=== PATIENT | female | born 1945 | race Two or more races ===

== ENCOUNTER 2023-01-13 16:14 | Inpatient (IN) | payer OTHER, MEDICAID ==
[~2023-01-13] VITALS: Ht 160 cm; Wt 46.8 kg
[2023-01-13] MEDS ORDERED: SODIUM CHLORIDE 0.9% 500 ML IVB ONE (16:45)
[2023-01-13 17:31] LABS: Albumin 2.9 g/dL (3.4-5.0); Calcium 9.4 mg/dL (8.5-10.1); Magnesium 2.7 mg/dL (1.6-2.6); Potassium 3.8 mmol/L (3.5-5.1)
[2023-01-13 17:35] LABS: BUN/Creatinine Ratio 36.4 (10.0-20.0); Bilirubin, Total 0.8 mg/dL (0.2-1.0); Total Protein 8.5 g/dL (6.4-8.2)
[2023-01-13 17:46] LABS: Basophils # (auto) 0 10 ^3/uL (0-0.2); Basophils % (auto) 0.1 % (0.0-2.0); Eosinophils # (auto) 0 10 ^3/uL (0-0.8); Hematocrit 42.6 % (36.0-46.0); Lymphocytes # (auto) 0.7 10 ^3/uL (0.4-5.4); Lymphocytes % (auto) 5.3 % (10.0-50.0); Mean Corpuscular Hemoglobin 27.4 pg (28.0-32.0); Mean Corpuscular Hgb Conc. 32.9 g/dL (32.0-36.0); Mean Corpuscular Volume 83.3 fL (80.0-100.0); Monocytes # (auto) 0.7 10 ^3/uL (0-1.3); Monocytes % (auto) 5.3 % (0.0-12.0); Neutrophils # (auto) 12.1 10 ^3/uL (1.6-8.6); Neutrophils % (auto) 89.3 % (37.0-80.0); Nucleated Red Blood Cells % 0.1 %; Red Blood Cells 5.12 10^6/uL (4.0-5.20); Red Cell Distribution Width 14.1 % (11.8-14.3); White Blood Cell 13.6 10^3/uL (4.4-10.8)
[2023-01-13 18:00] LABS: INR 1.14 (0.9-1.15); Partial Thromboplastin Time 30.5 SEC (24.5-34.5); Prothrombin Time 11.9 sec (9.3-11.8)
[2023-01-13] MEDS ORDERED: levoFLOXacin 500MG 100 ML IV ONE (21:00)
[2023-01-13 21:30] VITALS: RESP 14; O2SAT 98
[2023-01-13 22:28] LABS: Urine Bacteria NONE SEEN /hpf (None Seen); Urine Blood 1+ /uL (Negative); Urine Clarity HAZY (Clear); Urine Color Yellow (Yellow); Urine Mucus FEW (None Seen); Urine Protein, UAD TRACE (Negative); Urine Specific Gravity 1.016 (1.001-1.035); Urine Urobilinogen Normal (Negative); Urine WBC 29 /hpf (0 - 5)
[2023-01-14] MEDS ORDERED: MORPHINE SULFATE INJ 2 MG/ml SYRG IV PRN (03:30)
[2023-01-14] MEDS ORDERED: ONDANSETRON HCL 4 MG/2 ML VIAL IV PRN (03:30)
[2023-01-14] MEDS ORDERED: DOCUSATE SOD 100 MG CAP PO PRN (03:30)
[2023-01-14] MEDS ORDERED: VANCOMYCIN PER PHARMACY 0 MG IV SCH ×2 (03:30→14:45)
[2023-01-14] MEDS ORDERED: ACETAMINOPHEN 325 MG TAB PO PRN (03:30)
[2023-01-14] MEDS ORDERED: DEXTROSE (50%) 50ML SYRG IV PRN (03:30)
[2023-01-14] MEDS ORDERED: NITROGLYCERIN 0.4 MG SL TAB SL PRN (03:30)
[2023-01-14] MEDS ORDERED: VANCOMYCIN 1GM/250ML 250 ML IV ONE (04:45)
[2023-01-14] MEDS: SODIUM CHLORIDE 0.9% 1,000 ML IV SCH ×2 (05:21→17:21)
[2023-01-14 05:56] LABS: Basophils # (auto) 0 10 ^3/uL (0-0.2); Eosinophils # (auto) 0 10 ^3/uL (0-0.8); Hematocrit 42.4 % (36.0-46.0); Hemoglobin 14.1 g/dL (12.2-16.2); Lymphocytes # (auto) 0.8 10 ^3/uL (0.4-5.4); Mean Corpuscular Hemoglobin 27.6 pg (28.0-32.0); Mean Corpuscular Hgb Conc. 33.1 g/dL (32.0-36.0); Mean Corpuscular Volume 83.2 fL (80.0-100.0); Monocytes # (auto) 1.1 10 ^3/uL (0-1.3); Monocytes % (auto) 6.5 % (0.0-12.0); Neutrophils # (auto) 14.4 10 ^3/uL (1.6-8.6); Neutrophils % (auto) 88.5 % (37.0-80.0); Red Cell Distribution Width 14.1 % (11.8-14.3); White Blood Cell 16.3 10^3/uL (4.4-10.8)
[2023-01-14] MEDS: ACCU-CHEK COMFORT CURVE STRIP VI SCH ×3 (06:02→18:17)
[2023-01-14] MEDS: InsuLIN REG 1unit/0.01ml Soln (100units/ml) SC SCH ×3 (06:06→18:00)
[2023-01-14 06:20] LABS: BUN/Creatinine Ratio 38.9 (10.0-20.0); Calcium 9.2 mg/dL (8.5-10.1); Potassium 3.1 mmol/L (3.5-5.1)
[2023-01-14] MEDS: CLINDAMYCIN 600MG IV 50 ML IV SCH ×2 (06:30→14:00)
[2023-01-14] MEDS ORDERED: POTASSIUM CHL 20MEQ/100ML 100 ML IV ONE (07:00)
[2023-01-14 08:30] VITALS: PULSE 86; RESP 16; O2SAT 96
[2023-01-14 19:30] VITALS: PULSE 88; RESP 20; O2SAT 96
[2023-01-14] MEDS ORDERED: levoFLOXacin 250MG 50 ML IV SCH (21:00)
[2023-01-14 23:47] VITALS: BP 176/77; PULSE 85; RESP 16; TEMP 98.9; O2SAT 98
[2023-01-14] MEDS ORDERED: ATEN50TA PO (23:55)
[2023-01-14] MEDS ORDERED: METF-371 PO (23:55)
[2023-01-15] MEDS: ACCU-CHEK COMFORT CURVE STRIP VI SCH ×4 (00:22→17:31)
[2023-01-15] MEDS ORDERED: CLON0.1T PO (00:36)
[2023-01-15] MEDS ORDERED: AMLO1TAB23 PO (00:36)
[2023-01-15] MEDS: hydrALAZINE HCL 20 MG/ML VL IV PRN ×2 (02:11→22:43)
[2023-01-15 05:00] VITALS: BP 153/71; PULSE 93; RESP 18; TEMP 97.3; O2SAT 100
[2023-01-15] MEDS: InsuLIN REG 1unit/0.01ml Soln (100units/ml) SC SCH ×4 (05:25→17:31)
[2023-01-15] MEDS: SODIUM CHLORIDE 0.9% 1,000 ML IV SCH ×3 (06:10→21:40)
[2023-01-15 06:13] LABS: Basophils # (auto) 0 10 ^3/uL (0-0.2); Basophils % (auto) 0.1 % (0.0-2.0); Eosinophils # (auto) 0 10 ^3/uL (0-0.8); Hematocrit 40.3 % (36.0-46.0); Hemoglobin 13.4 g/dL (12.2-16.2); Lymphocytes # (auto) 0.8 10 ^3/uL (0.4-5.4); Lymphocytes % (auto) 5.4 % (10.0-50.0); Mean Corpuscular Hemoglobin 27.8 pg (28.0-32.0); Mean Corpuscular Hgb Conc. 33.2 g/dL (32.0-36.0); Mean Corpuscular Volume 83.6 fL (80.0-100.0); Monocytes % (auto) 6.1 % (0.0-12.0); Neutrophils # (auto) 13.8 10 ^3/uL (1.6-8.6); Neutrophils % (auto) 88.4 % (37.0-80.0); Nucleated Red Blood Cells % 0.2 %; Red Blood Cells 4.82 10^6/uL (4.0-5.20); Red Cell Distribution Width 14.2 % (11.8-14.3); White Blood Cell 15.6 10^3/uL (4.4-10.8)
[2023-01-15 06:29] LABS: BUN/Creatinine Ratio 38.1 (10.0-20.0); Calcium 9.1 mg/dL (8.5-10.1)
[2023-01-15 06:44] LABS: Potassium 2.9 mmol/L (3.5-5.1)
[2023-01-15] MEDS: POTASSIUM CHL 20MEQ/100ML 100 ML IV SCH ×3 (07:42→12:46)
[2023-01-15 08:00] VITALS: PULSE 89
[2023-01-15 09:00] VITALS: BP_SYST 123; BP_SYST 167; BP_DIAS 72; BP_DIAS 80; PULSE 100; PULSE 92; RESP 18; RESP 20; TEMP 97.3; TEMP 97.5; O2SAT 93; O2SAT 99
[2023-01-15] MEDS ORDERED: IOHEXOL 300 MG/ML 100ML BOTTLE IJ ONE (12:01)
[2023-01-15] MEDS ORDERED: cefTRIAXone 1GM/50ML D5W 50 ML IV ONE (14:30)
[2023-01-15 16:00] VITALS: BP 162/91; PULSE 92; RESP 92; TEMP 98; O2SAT 98
[2023-01-15] MEDS: VANCOMYCIN 1GM/250ML 250 ML IV SCH (16:43)
[2023-01-15 20:10] VITALS: PULSE 91; PULSE 92; RESP 18; O2SAT 90
[2023-01-15 22:00] VITALS: BP 168/90; PULSE 91; RESP 18; TEMP 98.3; O2SAT 90
[2023-01-16] VITALS (8 sets, daily range): BP systolic 151–197; BP diastolic 66–99; PULSE 91–110; RESP 18–20; TEMP 96.9–98.4; O2SAT 90–100
[2023-01-16] MEDS: ACCU-CHEK COMFORT CURVE STRIP VI SCH ×5 (00:28→23:50)
[2023-01-16] MEDS: METOPROLOL TARTRATE 1MG/1ML-5ML VIAL IV PRN (03:14)
[2023-01-16] MEDS: SODIUM CHLORIDE 0.9% 1,000 ML IV SCH ×4 (04:20→23:52)
[2023-01-16] MEDS: hydrALAZINE HCL 20 MG/ML VL IV PRN ×2 (04:55→19:07)
[2023-01-16] MEDS: InsuLIN REG 1unit/0.01ml Soln (100units/ml) SC SCH ×5 (05:31→23:54)
[2023-01-16 06:10] LABS: Basophils # (auto) 0 10 ^3/uL (0-0.2); Basophils % (auto) 0.1 % (0.0-2.0); Eosinophils # (auto) 0 10 ^3/uL (0-0.8); Hematocrit 41.9 % (36.0-46.0); Hemoglobin 13.5 g/dL (12.2-16.2); Lymphocytes # (auto) 0.8 10 ^3/uL (0.4-5.4); Lymphocytes % (auto) 5.1 % (10.0-50.0); Mean Corpuscular Hemoglobin 27.4 pg (28.0-32.0); Mean Corpuscular Hgb Conc. 32.2 g/dL (32.0-36.0); Mean Corpuscular Volume 85.1 fL (80.0-100.0); Monocytes # (auto) 0.8 10 ^3/uL (0-1.3); Monocytes % (auto) 5.2 % (0.0-12.0); Neutrophils # (auto) 14.7 10 ^3/uL (1.6-8.6); Neutrophils % (auto) 89.6 % (37.0-80.0); Red Blood Cells 4.92 10^6/uL (4.0-5.20); Red Cell Distribution Width 14.7 % (11.8-14.3); White Blood Cell 16.4 10^3/uL (4.4-10.8)
[2023-01-16 06:37] LABS: Potassium 3.3 mmol/L (3.5-5.1)
[2023-01-16 06:42] LABS: Calcium 9.6 mg/dL (8.5-10.1)
[2023-01-16] MEDS ORDERED: POTASSIUM CHL 20MEQ/100ML 100 ML IV ONE (07:00)
[2023-01-16] MEDS: cefTRIAXone 1GM/50ML D5W 50 ML IV SCH (09:42)
[2023-01-16] MEDS: CHOLESTYRAMINE 4 GM POWDER PO SCH ×2 (11:00→23:00)
[2023-01-16] MEDS: VANCOMYCIN 1GM/250ML 250 ML IV SCH (19:07)
[2023-01-17] VITALS (7 sets, daily range): BP systolic 160–186; BP diastolic 81–119; PULSE 100–116; RESP 16–20; TEMP 97.5–98.2; O2SAT 90–100
[2023-01-17] MEDS: METOPROLOL TARTRATE 1MG/1ML-5ML VIAL IV PRN (05:20)
[2023-01-17] MEDS: ACCU-CHEK COMFORT CURVE STRIP VI SCH ×3 (05:21→18:48)
[2023-01-17] MEDS: InsuLIN REG 1unit/0.01ml Soln (100units/ml) SC SCH ×3 (05:21→18:00)
[2023-01-17] MEDS: SODIUM CHLORIDE 0.9% 1,000 ML IV SCH ×3 (05:22→21:48)
[2023-01-17 05:48] LABS: Basophils # (auto) 0 10 ^3/uL (0-0.2); Basophils % (auto) 0.1 % (0.0-2.0); Eosinophils # (auto) 0 10 ^3/uL (0-0.8); Hematocrit 39.8 % (36.0-46.0); Hemoglobin 13.1 g/dL (12.2-16.2); Lymphocytes # (auto) 0.8 10 ^3/uL (0.4-5.4); Lymphocytes % (auto) 6.4 % (10.0-50.0); Mean Corpuscular Hemoglobin 27.3 pg (28.0-32.0); Mean Corpuscular Hgb Conc. 32.9 g/dL (32.0-36.0); Monocytes # (auto) 0.9 10 ^3/uL (0-1.3); Monocytes % (auto) 7.4 % (0.0-12.0); Neutrophils # (auto) 10.4 10 ^3/uL (1.6-8.6); Neutrophils % (auto) 86.1 % (37.0-80.0); Nucleated Red Blood Cells % 0.1 %; Red Blood Cells 4.79 10^6/uL (4.0-5.20); Red Cell Distribution Width 14.4 % (11.8-14.3); White Blood Cell 12.1 10^3/uL (4.4-10.8)
[2023-01-17 06:12] LABS: Calcium 9.2 mg/dL (8.5-10.1)
[2023-01-17 06:14] LABS: BUN/Creatinine Ratio 41.1 (10.0-20.0)
[2023-01-17 06:27] LABS: Potassium 2.9 mmol/L (3.5-5.1)
[2023-01-17] MEDS: hydrALAZINE HCL 20 MG/ML VL IV PRN (06:54)
[2023-01-17] MEDS ORDERED: POTASSIUM CHLORIDE 60 MEQ, LIDOCAINE 1% (LOCAL ANESTH.) 6 ML in SODIUM CHL 0.9% 500 ML IV ONE (07:30)
[2023-01-17] MEDS: cefTRIAXone 1GM/50ML D5W 50 ML IV SCH (10:01)
[2023-01-17] MEDS ORDERED: ceFAZolin 1GM/50ML 50 ML IV ONE (10:15)
[2023-01-17] MEDS ORDERED: diphenhdrAMINE HCL 50 MG/1 ML VL IV ONE (10:30)
[2023-01-17] MEDS ORDERED: ceFAZolin 2 GM/D5W100ml 100 ML IV SCH (17:00)
[2023-01-17] MEDS: ceFAZolin 2 GM/D5W100ml 100 ML IV SCH (21:48)
[2023-01-18] VITALS (7 sets, daily range): BP systolic 181–202; BP diastolic 86–114; PULSE 88–111; RESP 17–22; TEMP 97.1–98; O2SAT 90–100
[2023-01-18] MEDS: ACCU-CHEK COMFORT CURVE STRIP VI SCH ×5 (00:12→23:36)
[2023-01-18] MEDS: SODIUM CHLORIDE 0.9% 1,000 ML IV SCH ×2 (03:00→09:40)
[2023-01-18] MEDS: METOPROLOL TARTRATE 1MG/1ML-5ML VIAL IV PRN ×2 (03:58→18:08)
[2023-01-18] MEDS: ceFAZolin 2 GM/D5W100ml 100 ML IV SCH ×3 (05:17→21:20)
[2023-01-18] MEDS: InsuLIN REG 1unit/0.01ml Soln (100units/ml) SC SCH ×5 (05:17→23:43)
[2023-01-18] MEDS: hydrALAZINE HCL 20 MG/ML VL IV PRN ×2 (06:36→22:02)
[2023-01-18 08:05] LABS: Basophils # (auto) 0 10 ^3/uL (0-0.2); Basophils % (auto) 0.1 % (0.0-2.0); Eosinophils # (auto) 0 10 ^3/uL (0-0.8); Eosinophils % (auto) 0.1 % (0.0-7.0); Hematocrit 41.5 % (36.0-46.0); Hemoglobin 13.4 g/dL (12.2-16.2); Lymphocytes # (auto) 1.3 10 ^3/uL (0.4-5.4); Lymphocytes % (auto) 10.6 % (10.0-50.0); Mean Corpuscular Hemoglobin 27.4 pg (28.0-32.0); Mean Corpuscular Hgb Conc. 32.3 g/dL (32.0-36.0); Mean Corpuscular Volume 84.9 fL (80.0-100.0); Monocytes # (auto) 0.8 10 ^3/uL (0-1.3); Monocytes % (auto) 7.1 % (0.0-12.0); Neutrophils # (auto) 9.7 10 ^3/uL (1.6-8.6); Neutrophils % (auto) 82.1 % (37.0-80.0); Nucleated Red Blood Cells % 0.1 %; Red Blood Cells 4.89 10^6/uL (4.0-5.20); Red Cell Distribution Width 14.6 % (11.8-14.3); White Blood Cell 11.8 10^3/uL (4.4-10.8)
[2023-01-18 08:30] LABS: BUN/Creatinine Ratio 33.3 (10.0-20.0); Calcium 9.6 mg/dL (8.5-10.1); Potassium 3.5 mmol/L (3.5-5.1)
[2023-01-18] MEDS ORDERED: CLINIMIX PER PHARMACY 0 ML IV SCH (12:45)
[2023-01-18 13:35] LABS: Magnesium 2.3 mg/dL (1.6-2.6); Phosphorus 2.2 mg/dL (2.5-4.90)
[2023-01-18] MEDS: D5W/SOD CHL 0.45% 1,000 ML IV SCH ×2 (14:41→22:45)
[2023-01-18] MEDS ORDERED: POTASSIUM PHOSPHATE 22 MEQ in SODIUM CHL 0.9% 100 ML IV ONE (15:00)
[2023-01-18] MEDS ORDERED: AMINO ACID INFUSION IN D10W 1,000 ML IV NR (20:00)
[2023-01-19] VITALS (44 sets, daily range): BP systolic 125–216; BP diastolic 64–112; PULSE 90–198; RESP 9–22; TEMP 97–98.6; O2SAT 90–100
[2023-01-19] MEDS ORDERED: DEXTROSE (50%) 50ML SYRG IV SCH
[2023-01-19] MEDS: ACCU-CHEK COMFORT CURVE STRIP VI SCH ×4 (05:47→23:41)
[2023-01-19] MEDS: InsuLIN REG 1unit/0.01ml Soln (100units/ml) SC SCH ×4 (05:48→23:44)
[2023-01-19 06:27] LABS: Albumin 2.3 g/dL (3.4-5.0); BUN/Creatinine Ratio 31.1 (10.0-20.0); Bilirubin, Total 0.5 mg/dL (0.2-1.0); Calcium 8.8 mg/dL (8.5-10.1); Phosphorus 2.1 mg/dL (2.5-4.90); Total Protein 7.2 g/dL (6.4-8.2)
[2023-01-19] MEDS: ceFAZolin 2 GM/D5W100ml 100 ML IV SCH ×3 (06:32→22:00)
[2023-01-19] MEDS: hydrALAZINE HCL 20 MG/ML VL IV PRN (06:33)
[2023-01-19] MEDS: D5W/SOD CHL 0.45% 1,000 ML IV SCH (08:45)
[2023-01-19] MEDS ORDERED: POTASSIUM CHL 20MEQ/100ML 100 ML IV SCH ×2 (12:45→17:30)
[2023-01-19] MEDS ORDERED: MORPHINE SULFATE INJ 2 MG/ml SYRG IV PRN (12:45)
[2023-01-19] MEDS ORDERED: NITROGLYCERIN 0.4 MG SL TAB SL PRN (12:45)
[2023-01-19] MEDS ORDERED: MAGNESIUM SULFATE 1GM/100ML 100 ML IV ONE (13:45)
[2023-01-19] MEDS ORDERED: POTASSIUM PHOSPHATE 30 MEQ in D5W 5% 250 ML IV ONE ×2 (15:00→19:30)
[2023-01-19 15:54] LABS: Protein, Urine 163.2 mg/dL (0.0-11.9); Urine Protein/Creatinine Ratio 2.24
[2023-01-19 16:19] LABS: INR 1.92 (0.9-1.15); Partial Thromboplastin Time 21.4 SEC (24.5-34.5); Prothrombin Time 19.3 sec (9.3-11.8)
[2023-01-19] MEDS: SODIUM BICARBONATE 50ML VIAL 50 ML in D5W 5% 1,000 ML IV SCH ×2 (17:16→22:45)
[2023-01-19] MEDS ORDERED: LIDOCAINE 1% (LOCAL ANESTH.) PF 5ml SDV ID ONE (17:30)
[2023-01-19] MEDS ORDERED: cloNIDine 0.3 mg/24hr 7DAY PATCH TD SCH (18:15)
[2023-01-19] MEDS: AMINO ACID INFUSION IN D10W 1,000 ML IV NR (20:00)
[2023-01-19] MEDS: SODIUM CHLOR 0.9% PF (SALINE LOCK) 10ML VIAL/SYR IV SCH (22:00)
[2023-01-20] VITALS (99 sets, daily range): BP systolic 94–156; BP diastolic 49–88; PULSE 62–110; RESP 9–26; TEMP 95.4–99.5; O2SAT 98–100
[2023-01-20 04:22] LABS: Albumin 2.3 g/dL (3.4-5.0); Calcium 7.7 mg/dL (8.5-10.1); Phosphorus 3.5 mg/dL (2.5-4.90)
[2023-01-20] MEDS: ceFAZolin 2 GM/D5W100ml 100 ML IV SCH ×3 (05:43→21:20)
[2023-01-20] MEDS: ACCU-CHEK COMFORT CURVE STRIP VI SCH ×3 (05:46→17:26)
[2023-01-20] MEDS: InsuLIN REG 1unit/0.01ml Soln (100units/ml) SC SCH ×3 (05:59→17:29)
[2023-01-20 09:44] LABS: Hepatitis B Surface Antibody Negative (Negative)
[2023-01-20] MEDS: POTASSIUM CHL 20MEQ/100ML 100 ML IV SCH ×2 (09:49→11:46)
[2023-01-20] MEDS: SODIUM CHLOR 0.9% PF (SALINE LOCK) 10ML VIAL/SYR IV SCH ×2 (09:50→21:20)
[2023-01-20] MEDS: SODIUM BICARBONATE 50ML VIAL 50 ML in D5W 5% 1,000 ML IV SCH ×2 (10:02→21:20)
[2023-01-20 10:22] LABS: Hepatitis A Total Antibody Positive (Negative)
[2023-01-20] MEDS ORDERED: OPTISON 3ml Vial for INJ IV ONE (11:15)
[2023-01-20] MEDS: AMINO ACID INFUSION IN D10W 1,000 ML IV NR (11:47)
[2023-01-20 12:15] LABS: Hepatitis B Surface Antigen Negative (Negative)
[2023-01-20 12:21] LABS: Hepatitis C Antibody Negative (Negative)
[2023-01-20 12:23] LABS: Hepatitis B Core Total AB Positive (Negative)
[2023-01-20] MEDS ORDERED: AMINO ACID INFUSION IN D10W 1,000 ML IV NR (20:00)
[2023-01-20] MEDS: cloNIDine 0.1 mg/24hr 7 DAY PATCH TD SCH (21:14)
[2023-01-21] VITALS (91 sets, daily range): BP systolic 126–190; BP diastolic 57–100; PULSE 73–126; RESP 14–25; TEMP 98.1–99.7; O2SAT 98–100
[2023-01-21] MEDS: InsuLIN REG 1unit/0.01ml Soln (100units/ml) SC SCH ×5 (00:01→23:07)
[2023-01-21 05:14] LABS: Albumin 1.8 g/dL (3.4-5.0); Calcium 7.3 mg/dL (8.7-10.4)
[2023-01-21 05:16] LABS: BUN/Creatinine Ratio 37.9 (10.0-20.0); Magnesium 1.7 mg/dL (1.6-2.6)
[2023-01-21 05:19] LABS: Bilirubin, Total 0.4 mg/dL (0.2-1.0); Phosphorus 1.9 mg/dL (2.5-4.90); Total Protein 5.1 g/dL (6.4-8.2)
[2023-01-21] MEDS: ceFAZolin 2 GM/D5W100ml 100 ML IV SCH ×3 (05:49→21:13)
[2023-01-21] MEDS: ACCU-CHEK COMFORT CURVE STRIP VI SCH ×5 (05:49→23:07)
[2023-01-21] MEDS: SODIUM BICARBONATE 50ML VIAL 50 ML in D5W 5% 1,000 ML IV SCH ×2 (06:15→09:47)
[2023-01-21] MEDS: METOPROLOL TARTRATE 1MG/1ML-5ML VIAL IV PRN ×2 (08:25→15:36)
[2023-01-21] MEDS ORDERED: MAGNESIUM SULFATE 1GM/100ML 100 ML IV ONE (08:30)
[2023-01-21] MEDS ORDERED: POTASSIUM PHOSPHATE 44 MEQ in D5W 5% 250 ML IV ONE (09:30)
[2023-01-21] MEDS: cloNIDine 0.1 mg/24hr 7 DAY PATCH TD SCH (10:00)
[2023-01-21] MEDS: SODIUM CHLOR 0.9% PF (SALINE LOCK) 10ML VIAL/SYR IV SCH ×2 (10:00→21:13)
[2023-01-21] MEDS: LABETALOL HCL 5 MG/ML 4ML SYRINGE IV SCH ×2 (12:04→20:09)
[2023-01-21] MEDS: AMINO ACID INFUSION IN D10W 1,000 ML IV NR (20:09)
[2023-01-21] MEDS: hydrALAZINE HCL 20 MG/ML VL IV PRN (23:10)
[2023-01-22] VITALS (48 sets, daily range): BP systolic 141–192; BP diastolic 65–88; PULSE 82–104; RESP 10–17; TEMP 98.1–99.1; O2SAT 98–100
[2023-01-22] MEDS: METOPROLOL TARTRATE 1MG/1ML-5ML VIAL IV PRN ×3 (00:41→18:09)
[2023-01-22] MEDS: LABETALOL HCL 5 MG/ML 4ML SYRINGE IV SCH ×3 (03:55→20:12)
[2023-01-22 04:49] LABS: Alanine Aminotransferase 19 U/L (7-40); Albumin 2.6 g/dL (3.2-4.8); Alkaline Phosphatase 71 U/L (46-116); Anion Gap 8.2 (5-15); Aspartate Aminotransferase 47 U/L (13-40); BUN/Creatinine Ratio 35.8 (10.0-20.0); Blood Urea Nitrogen 19 mg/dL (9-23); Calcium 7.5 mg/dL (8.7-10.4); Carbon Dioxide 23.8 mmol/L (20-30); Chloride 104 mmol/L (98-107); Glucose 150 mg/dL (74-106); Magnesium 1.5 mg/dL (1.6-2.6); Phosphorus 2.5 mg/dL (2.4-5.1); Potassium 3.2 mmol/L (3.5-5.1); Sodium 136 mmol/L (136-145)
[2023-01-22 04:50] LABS: Bilirubin, Total 0.7 mg/dL (0.2-1.0); Total Protein 5.4 g/dL (5.7-8.2)
[2023-01-22] MEDS: ceFAZolin 2 GM/D5W100ml 100 ML IV SCH ×3 (05:26→22:18)
[2023-01-22] MEDS: ACCU-CHEK COMFORT CURVE STRIP VI SCH ×3 (05:26→18:09)
[2023-01-22] MEDS: InsuLIN REG 1unit/0.01ml Soln (100units/ml) SC SCH ×3 (05:26→18:13)
[2023-01-22] MEDS: hydrALAZINE HCL 20 MG/ML VL IV PRN ×3 (05:26→21:41)
[2023-01-22] MEDS ORDERED: MAGNESIUM SULFATE 1GM/100ML 100 ML IV ONE (09:30)
[2023-01-22] MEDS: SODIUM CHLOR 0.9% PF (SALINE LOCK) 10ML VIAL/SYR IV SCH ×2 (10:20→22:18)
[2023-01-22] MEDS ORDERED: cloNIDine 0.2 mg/24hr 7DAY PATCH TD SCH (10:30)
[2023-01-22] MEDS ORDERED: POTASSIUM PHOSPHATE 22 MEQ in SODIUM CHL 0.9% 100 ML IV ONE (11:00)
[2023-01-22 12:37] LABS: Basophils # (auto) 0 10 ^3/uL (0-0.2); Basophils % (auto) 0.3 % (0.0-2.0); Eosinophils # (auto) 0.1 10 ^3/uL (0-0.8); Eosinophils % (auto) 1.4 % (0.0-7.0); Hematocrit 30.9 % (36.0-46.0); Lymphocytes # (auto) 0.8 10 ^3/uL (0.4-5.4); Lymphocytes % (auto) 13.1 % (10.0-50.0); Mean Corpuscular Hemoglobin 27.5 pg (28.0-32.0); Mean Corpuscular Hgb Conc. 32.4 g/dL (32.0-36.0); Mean Corpuscular Volume 84.8 fL (80.0-100.0); Monocytes # (auto) 0.5 10 ^3/uL (0-1.3); Monocytes % (auto) 8.2 % (0.0-12.0); Neutrophils # (auto) 4.9 10 ^3/uL (1.6-8.6); Nucleated Red Blood Cells % 0.1 %; Red Blood Cells 3.64 10^6/uL (4.0-5.20); Red Cell Distribution Width 13.9 % (11.8-14.3); White Blood Cell 6.4 10^3/uL (4.4-10.8)
[2023-01-22 12:54] LABS: INR 3.95 (0.9-1.15); Prothrombin Time 37.9 sec (9.3-11.8)
[2023-01-22] MEDS ORDERED: PHYTONADIONE (VIT K)10 MG/ML 1ML VIAL SUBCUT ONE (15:30)
[2023-01-22] MEDS: MAGNESIUM SULFATE 1GM/100ML 100 ML IV SCH ×2 (18:21→20:11)
[2023-01-22] MEDS: AMINO ACID INFUSION IN D10W 1,000 ML IV NR (20:12)
[2023-01-23] VITALS (71 sets, daily range): BP systolic 112–177; BP diastolic 60–95; PULSE 76–99; RESP 12–19; TEMP 97.5–99.1; O2SAT 96–100
[2023-01-23] MEDS: ACCU-CHEK COMFORT CURVE STRIP VI SCH ×5 (00:07→23:40)
[2023-01-23] MEDS: InsuLIN REG 1unit/0.01ml Soln (100units/ml) SC SCH ×5 (00:10→23:43)
[2023-01-23] MEDS: LABETALOL HCL 5 MG/ML 4ML SYRINGE IV SCH ×3 (03:59→19:58)
[2023-01-23 04:31] LABS: Basophils # (auto) 0 10 ^3/uL (0-0.2); Basophils % (auto) 0.2 % (0.0-2.0); Eosinophils # (auto) 0.1 10 ^3/uL (0-0.8); Eosinophils % (auto) 1.5 % (0.0-7.0); Hematocrit 31.5 % (36.0-46.0); Hemoglobin 10.1 g/dL (12.2-16.2); Lymphocytes # (auto) 0.8 10 ^3/uL (0.4-5.4); Lymphocytes % (auto) 10.9 % (10.0-50.0); Mean Corpuscular Hemoglobin 27.7 pg (28.0-32.0); Mean Corpuscular Hgb Conc. 32.1 g/dL (32.0-36.0); Mean Corpuscular Volume 86.5 fL (80.0-100.0); Monocytes # (auto) 0.6 10 ^3/uL (0-1.3); Monocytes % (auto) 8.3 % (0.0-12.0); Neutrophils # (auto) 5.8 10 ^3/uL (1.6-8.6); Neutrophils % (auto) 79.1 % (37.0-80.0); Nucleated Red Blood Cells % 0.1 %; Red Blood Cells 3.64 10^6/uL (4.0-5.20); Red Cell Distribution Width 14.3 % (11.8-14.3); White Blood Cell 7.3 10^3/uL (4.4-10.8)
[2023-01-23 04:52] LABS: INR 1.84 (0.9-1.15); Partial Thromboplastin Time 42.7 SEC (24.5-34.5); Prothrombin Time 18.6 sec (9.3-11.8)
[2023-01-23] MEDS: ceFAZolin 2 GM/D5W100ml 100 ML IV SCH ×3 (06:11→22:21)
[2023-01-23 07:55] LABS: Alanine Aminotransferase 14 U/L (7-40); Albumin 2.5 g/dL (3.2-4.8); Alkaline Phosphatase 73 U/L (46-116); Anion Gap 9.4 (5-15); Aspartate Aminotransferase 43 U/L (13-40); BUN/Creatinine Ratio 22.4 (10.0-20.0); Bilirubin, Total 0.6 mg/dL (0.2-1.0); Blood Urea Nitrogen 11 mg/dL (9-23); Calcium 7.7 mg/dL (8.5-10.1); Carbon Dioxide 19.6 mmol/L (20-30); Chloride 102 mmol/L (98-107); Glucose 168 mg/dL (74-106); Magnesium 2.3 mg/dL (1.6-2.6); Potassium 3.5 mmol/L (3.5-5.1); Total Protein 5.6 g/dL (5.7-8.2)
[2023-01-23 08:05] LABS: Sodium 131 mmol/L (136-145)
[2023-01-23] MEDS ORDERED: POTASSIUM CHL 20MEQ/100ML 100 ML IV ONE (08:45)
[2023-01-23] MEDS: hydrALAZINE HCL 20 MG/ML VL IV PRN (09:57)
[2023-01-23] MEDS: SODIUM CHLOR 0.9% PF (SALINE LOCK) 10ML VIAL/SYR IV SCH ×2 (09:58→22:21)
[2023-01-23] MEDS ORDERED: PHYTONADIONE (VIT K)10 MG/ML 1ML VIAL SUBCUT ONE (10:00)
[2023-01-23] MEDS ORDERED: AMINO ACID INFUSION IN D10W 1,000 ML IV NR (20:00)
[2023-01-24] MEDS: LABETALOL HCL 5 MG/ML 4ML SYRINGE IV SCH ×2 (03:54→12:09)
[2023-01-24] MEDS: ACCU-CHEK COMFORT CURVE STRIP VI SCH ×2 (05:23→12:10)
[2023-01-24] MEDS: ceFAZolin 2 GM/D5W100ml 100 ML IV SCH ×2 (05:23→14:47)
[2023-01-24] MEDS: InsuLIN REG 1unit/0.01ml Soln (100units/ml) SC SCH ×2 (05:26→12:00)
[2023-01-24 05:28] LABS: Alanine Aminotransferase 10 U/L (7-40); Albumin 2.6 g/dL (3.2-4.8); Alkaline Phosphatase 74 U/L (46-116); Anion Gap 6.9 (5-15); Aspartate Aminotransferase 33 U/L (13-40); BUN/Creatinine Ratio 35.6 (10.0-20.0); Blood Urea Nitrogen 16 mg/dL (9-23); Carbon Dioxide 22.1 mmol/L (20-30); Chloride 102 mmol/L (98-107); Glucose 107 mg/dL (74-106); Phosphorus 1.7 mg/dL (2.4-5.1); Potassium 3.4 mmol/L (3.5-5.1); Sodium 131 mmol/L (136-145)
[2023-01-24 05:29] LABS: Bilirubin, Total 0.7 mg/dL (0.2-1.0); Total Protein 5.5 g/dL (5.7-8.2)
[2023-01-24 08:00] VITALS: PULSE 80; RESP 18; O2SAT 99
[2023-01-24 09:00] VITALS: BP 173/91; PULSE 80; RESP 18; TEMP 98.2; O2SAT 99
[2023-01-24] MEDS: SODIUM CHLOR 0.9% PF (SALINE LOCK) 10ML VIAL/SYR IV SCH (09:10)
[2023-01-24 11:40] VITALS: BP 147/93; PULSE 80; RESP 18; TEMP 36.8; O2SAT 99
[2023-01-24 13:00] VITALS: BP 163/81; PULSE 85; RESP 20; TEMP 98.1; O2SAT 98
[2023-01-24] MEDS ORDERED: POTASSIUM PHOSPHATE 22 MEQ in SODIUM CHL 0.9% 100 ML IV ONE (15:15)
[2023-01-24] MEDS ORDERED: SODIUM PHOSPHATES 20 MEQ in SODIUM CHL 0.9% 100 ML IV ONE (20:00)
== END 2023-01-24 16:30 | disposition hospice, home (50) | DRG 871 ==
LOC: ER 16:14 → TELE 01-14 03:45 → TELE-EAST 01-14 22:50 → ICU WEST 01-19 13:33 → TELE-EAST 01-19 14:09 → ICU WEST 01-19 14:34 → TELE-WESTW 01-23 22:58
PROVIDERS: ADMIT Internal Medicine; ATTEND Internal Medicine
PROC: 05HA33Z Insertion of Infusion Device into Left Brachial Vein, Percutaneous Approach (ICD-10-PCS; 2023-01-18)
PROC: B54NZZA Ultrasonography of Left Upper Extremity Veins, Guidance (ICD-10-PCS; 2023-01-18)
PROC: 02HV33Z Insertion of Infusion Device into Superior Vena Cava, Percutaneous Approach (ICD-10-PCS; 2023-01-19)
PROC: B548ZZA Ultrasonography of Superior Vena Cava, Guidance (ICD-10-PCS; 2023-01-19)
PROC: 30233K1 Transfusion of Nonautologous Frozen Plasma into Peripheral Vein, Percutaneous Approach (ICD-10-PCS; principal; 2023-01-20)
DX: A41.01 Sepsis due to Methicillin susceptible Staphylococcus aureus (principal); E43 Unspecified severe protein-calorie malnutrition; N17.0 Acute kidney failure with tubular necrosis; D68.9 Coagulation defect, unspecified; E87.0 Hyperosmolality and hypernatremia; N39.0 Urinary tract infection, site not specified; Z68.1 Body mass index [BMI] 19.9 or less, adult; I69.351 Hemiplegia and hemiparesis following cerebral infarction affecting right dominant side; R62.7 Adult failure to thrive; N18.9 Chronic kidney disease, unspecified; K11.20 Sialoadenitis, unspecified; E11.22 Type 2 diabetes mellitus with diabetic chronic kidney disease; E78.5 Hyperlipidemia, unspecified; E86.0 Dehydration; E87.6 Hypokalemia; I12.9 Hypertensive chronic kidney disease with stage 1 through stage 4 chronic kidney disease, or unspecified chronic kidney disease; B96.5 Pseudomonas (aeruginosa) (mallei) (pseudomallei) as the cause of diseases classified elsewhere; R54 Age-related physical debility; I16.0 Hypertensive urgency; I69.320 Aphasia following cerebral infarction; R13.10 Dysphagia, unspecified; Z88.0 Allergy status to penicillin; Z88.1 Allergy status to other antibiotic agents; Z88.2 Allergy status to sulfonamides; B95.2 Enterococcus as the cause of diseases classified elsewhere
CPT/HCPCS: 36415; 36569; 70360; 70450; 70490; 70551; 71045; 74021; 74176; 74177; 80048; 80053; 80069; 80202; 81001; 82570; 82962; 83605; 83735; 83935; 84100; 84132; 84156; 84300; 85025; 85610; 85730; 86704; 86706; 86708; 86803; 86850; 86900; 86901; 87040; 87077; 87081; 87086; 87088; 87186; 87340; 87517; 92610; 93005; 93306; 93971; 96361; 96365; 96367; G0378; J0690; J0696; J1815; J1956; J2001; J3430; J3480; J3490; J7060; Q9956